=== PATIENT | male | born 1995 | race Caucasian/White ===

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

== ENCOUNTER 2018-11-29 14:47 | Emergency (ER) | payer OTHER ==
[2018-11-29 15:04] VITALS: BP 125/59
--- NOTE | 2018-11-29 15:31 | UC ---
Head Injury HPI - HPI Summary HPI Summary: Was elbowed in the face 2 days ago while playing basketball. Had brief period of confusion and then was able to continue playing. Subsequently has had headaches, nausea, photophobia and light headedness. Still having some difficulty focusing. - History Of Current Complaint Chief Complaint: UCHeadInjury Stated Complaint: LIGHT HEADED, FATIGUE, NAUSEA Time Seen by Provider: 11/29/18 15:15 Hx Obtained From: Patient Onset/Duration: Sudden Onset, Lasting Days - 2, Still Present Severity Currently: Mild Severity Initially: Moderate Pain Intensity: 4 Character: Dull Aggravating Factor(s): Other - light and activity Alleviating Factor(s): Nothing Associated Signs And Symptoms: Positive: Confusion, Nausea. Negative: LOC ( Time In Secs./Mins/Hrs), Neck Pain, Vomiting - Risk Factors SDH Risk Factor: Recent Trauma - Allergies/Home Medications Allergies/Adverse Reactions: Allergies Allergy/AdvReac Type Severity Reaction Status Date / Time dog Allergy Hives Uncoded 11/29/18 15:01 seasonal Allergy Eyes Uncoded 11/29/18 15:01 Itchy/Swollen/Red/Watery Home Medications: Home Medications Folic Acid TAB* [Folvite TAB*] 1 mg PO DAILY 11/29/18 [History Confirmed ] Methotrexate TAB* 17.5 mg PO ALEXANDRE 11/29/18 [History Confirmed 11/29/18] PMH/Surg Hx/FS Hx/Imm Hx - Additional Past Medical History Additional PMH: Rheumatoid arthritis - Surgical History Surgical History: None - Family History Known Family History: Negative: Diabetes - Social History Occupation: Employed Full-time Lives: With Family Alcohol Use: Occasionally Substance Use Type: None Smoking Status (MU): Never Smoked Tobacco - Immunization History Vaccination Up to Date: Yes Review of Systems All Other Systems Reviewed And Are Negative: Yes Constitutional: Positive: Fatigue Skin: Positive: Bruising - under left eye Eyes: Positive: Photophobia Gastrointestinal: Positive: Nausea Neurological: Positive: Headache Is Patient Immunocompromised?: Yes - on methotrexate Physical Exam Triage Information Reviewed: Yes Appearance: Well-Appearing, Well-Nourished, Pain Distress - mild Vital Signs: Initial Vital Signs Temp 97.6 F 11/29/18 14:58 Pulse 80 11/29/18 14:58 Resp 16 11/29/18 14:58 BP 125/59 11/29/18 14:58 Pulse Ox 98 11/29/18 14:58 Vital Signs Reviewed: Yes Eye Exam: Normal, Other - disc's sharp. ENT Exam: Normal Dental Exam: Normal Neck exam: Normal Respiratory Exam: Normal Cardiovascular Exam: Normal Abdominal Exam: Normal Musculoskeletal Exam: Normal Neurological Exam: Other - Negative rhomberg Neurological: Positive: Alert, Muscle Tone Normal, Other: - heel toe walking with slight imbalance. Psychological Exam: Normal Skin Exam: Normal Head Injury Course/Dx - Differential Dx/Diagnosis Differential Diagnosis/HQI/PQRI: Cerebral Contusion, Cervical Sprain, Concussion Without LOC, Contusion Provider Diagnosis: Post concussion syndrome Discharge - Sign-Out/Discharge Documenting (check all that apply): Patient Departure All imaging exams completed and their final reports reviewed: No - Discharge Plan Condition: Stable Disposition: HOME Patient Education Materials: Post Concussion Syndrome (ED) Referrals: Patience Conrad MD [Primary Care Provider] - If Needed (If the concussion symptoms are not resolving.) Additional Instructions: Avoid video games and scary movies. Sleep as much as possible. Avoid any contact sports for at least 7 days after the last of the post concussion symptoms have resolved. - Billing Disposition and Condition Condition: STABLE Disposition: Home
== END 2018-11-29 15:38 | disposition home or self-care (01) ==
LOC: UCCORT 14:47
DX: F07.81 Postconcussional syndrome (principal); W50.0XXA Accidental hit or strike by another person, initial encounter; Y93.67 Activity, basketball; Y92.9 Unspecified place or not applicable
CPT/HCPCS: 99211; G0463

== ENCOUNTER 2019-05-14 09:53 | Emergency (ER) | payer OTHER ==
[2019-05-14 10:12] VITALS: BP 132/67
--- NOTE | 2019-05-14 11:21 | UC ---
UC General HPI - HPI Summary HPI Summary: Pt presents with c/o generalized malaise, chills, light headed X 2-3 days. Pt states that he has not eaten breakfast this morning and felt light headed at work. Pt also c/o redness at injection site of humira that pt takes for RA and is scheduled for every other week. Pt states that he called the rheumatology office and was told to come here. - History of Current Complaint Chief Complaint: UCGeneralIllness Stated Complaint: GOT HUMIRA SHOT(05/12/19)-LOW ENERGY,FEVER,DIZZY Time Seen by Provider: 05/14/19 10:15 Hx Obtained From: Patient Onset/Duration: Sudden Onset, Lasting Days, Still Present Timing: Constant Onset Severity: Mild Current Severity: Mild Pain Intensity: 0 Associated Signs & Symptoms: Positive: Dizziness, Weakness - Allergy/Home Medications Allergies/Adverse Reactions: Allergies Allergy/AdvReac Type Severity Reaction Status Date / Time dog Allergy Hives Uncoded 05/14/19 10:10 seasonal Allergy Eyes Uncoded 05/14/19 10:10 Itchy/Swollen/Red/Watery Home Medications: Home Medications Adalimumab [Humira] mg SC Q14D 05/14/19 [History] PMH/Surg Hx/FS Hx/Imm Hx Previously Healthy: Yes - Surgical History Surgical History: None - Family History Known Family History: Negative: Diabetes - Social History Occupation: Employed Part-time, Student Lives: With Family Alcohol Use: Occasionally Substance Use Type: None Smoking Status (MU): Never Smoked Tobacco Have You Smoked in the Last Year: No - Immunization History Vaccination Up to Date: Yes Review of Systems All Other Systems Reviewed And Are Negative: Yes Constitutional: Positive: Chills, Fatigue Skin: Positive: Negative Eyes: Positive: Negative ENT: Positive: Sore Throat Respiratory: Positive: Cough Cardiovascular: Positive: Negative Gastrointestinal: Positive: Negative Genitourinary: Positive: Negative Motor: Positive: Negative Neurovascular: Positive: Negative Musculoskeletal: Positive: Myalgia Neurological: Positive: Negative Psychological: Positive: Negative Is Patient Immunocompromised?: No Physical Exam Triage Information Reviewed: Yes Appearance: Well-Appearing Vital Signs: Initial Vital Signs Temp 97.5 F 05/14/19 10:08 Pulse 76 05/14/19 10:08 Resp 16 05/14/19 10:08 BP 132/67 05/14/19 10:08 Pulse Ox 99 11/14/19 10:08 Vital Signs Reviewed: Yes Eye Exam: Normal ENT Exam: Normal ENT: Positive: Normal ENT inspection Dental Exam: Normal Neck exam: Normal Respiratory Exam: Normal Cardiovascular Exam: Normal Musculoskeletal Exam: Normal Neurological Exam: Normal Psychological Exam: Normal Skin Exam: Other - mild erythema to right mid anterior thigh, no palpable swelling or noted discharge or induration Course/Dx - Course Course Of Treatment: I phoned the rheumatologst office and was advised to have CBC done. - Differential Dx - Multi-Symptom Differential Diagnoses: Urinary Tract Infection - Diagnoses Provider Diagnosis: Injection site irritation, Viral syndrome Discharge ED - Sign-Out/Discharge Documenting (check all that apply): Patient Departure All imaging exams completed and their final reports reviewed: No Studies - Discharge Plan Condition: Stable Disposition: HOME Patient Education Materials: Adalimumab (By injection), Viral Syndrome (ED) Forms: *Work Release Referrals: Patience Conrad MD [Primary Care Provider] - If Needed Theo Ford [Medical Doctor] - Additional Instructions: Please follow up with your audio visual aide as soon as possible. - Billing Disposition and Condition Condition: STABLE Disposition: Home - Attestation Statements Provider Attestation: This patient was not seen by me I was available for consult Chart reviewed TANMAY
[2019-05-14 14:02] LABS: ABS Basophils 0.1 10^3/ul (0-0.2); ABS Eosinophils 0.5 10^3/ul (0-0.6); ABS Monocytes 0.5 10^3/ul (0-0.8); ABS Neutrophils 5.2 10^3/ul (1.5-7.7); Eosinophil % 5.8 %; Hematocrit 49 % (42-52); Hemoglobin 16.9 g/dL (14.0-18.0); Lymphocyte % 23.7 %; Mean Corpuscular HGB Conc 35 g/dL (31-36); Mean Corpuscular Hemoglobin 31 pg (27-31); Mean Corpuscular Volume 89 fL (80-94); Nucleated Red Blood Cells % 0.1; Platelet Count 291 10^3/uL (150-450); Red Cell Distribution Width 13 % (10-15); White Blood Count 8.2 10^3/uL (3.5-10.8)
== END 2019-05-14 10:38 | disposition home or self-care (01) ==
LOC: UCCORT 09:53
DX: R53.81 Other malaise (principal); R23.8 Other skin changes; R42 Dizziness and giddiness; R68.83 Chills (without fever); R53.83 Other fatigue; J02.9 Acute pharyngitis, unspecified; R05 Cough; M79.10 Myalgia, unspecified site; Z91.09 Other allergy status, other than to drugs and biological substances
CPT/HCPCS: 36415; 85025; 99211; G0463

== ENCOUNTER 2019-09-12 17:14 | Emergency (ER) | payer OTHER ==
--- OUTSIDE RECORDS SUMMARY | 2019-09-12 17:35 | XMS REPORT | Summary of Care ---
:1995 Author Organization [facility] Address [address] [place] [address] Care Team Providers Name Role Phone Patience Conrad MD Primary Care Provider Reason for Referral Consultation (Routine) Status Reason Specialty Diagnoses / Referred By Referred To Procedures Contact Contact Open Specialty Ophthalmology Diagnoses Seropositive rheumatoid arthritis Long-term use of Plaquenil Nadir Ford MD [address] [place], [place] [id number] Email: [email or web address] Reason for Visit Reason Comments Follow-up Encounter Details Date Type Department Care Team Description 08/05/2019 Office Visit Randall Wharton rheumatoid arthritis (Primary Dx); Rheumatology MD Theo Long-term use of Plaquenil; [address] High risk medication use [address] Suite On license of [facility] [id number] [place] [address] [phone] Allergies No Known Allergiesdocumented as of this encounter (statuses as of 08/06/2019) Medications Medication Sig Dispensed Refills Start Date End Date Status Hydroxychloroquine Take 1 tablet 180 tablet 0 05/19/2019 08/17/2019 Active Sulfate 200 MG Oral by mouth Two Tablet (PLAQUENIL) Times Daily Adalimumab 40 MG/0.4ML Inject 0.4 2 each 2 07/31/2019 Active Subcutaneous Pen-injector mLs into the Kit (HUMIRA PEN) skin every 14 (fourteen) days documented as of this encounter (statuses as of 08/06/2019) Active Problems No known active problemsdocumented as of this encounter (statuses as of 2019) Social History Tobacco Use Types Packs/Day Years Used Date Never Smoker Smokeless Tobacco: Never Used Tobacco Cessation: Counseling Given: No Alcohol Use Drinks/Week oz/Week Comments No Alcohol Habits Answer Date Recorded How often do you have a drink containing alcohol? Never 07/22/2018 How many drinks containing alcohol do you have on a typical Not asked day when you are drinking? How often do you have six or more drinks on one occasion? Not asked Sex Assigned at Date Recorded Not on file Job Start Date Occupation Industry Not on file Not on file Not on file Travel History Travel Start Travel End No recent travel history available. documented as of this encounter Last Filed Vital Signs Vital Sign Reading Time Taken Comments Blood Pressure 139/74 08/05/2019 3:51 PM EST Pulse 73 08/05/2019 3:51 PM EST Temperature 36.9 08/05/2019 3:51 PM EST C (98.5 F) Respiratory Rate 18 08/05/2019 3:51 PM EST Oxygen Saturation 99% 08/05/2019 3:51 PM EST Inhaled Oxygen Concentration - - Weight 83.5 kg (184 lb) 08/05/2019 3:51 PM EST Height 177.8 cm (5' 10") 08/05/2019 3:51 PM EST Body Mass Index 26.4 08/05/2019 3:51 PM EST documented in this encounter Progress Notes Theo Ford MD - 08/05/2019 4:00 PM EST Subjective: Patient ID: Linden Veloz is a 23 y.o. male. Dictation on: 08/05/2019 4:20 PM by: THEO LOWE [[id number]] Patient is aware of plaquenil's potential to cause retinal and corneal pigment deposits, myopathy and neuropathy. Patient is also aware of the need to follow up with ophthalmology in this regard. HPI Linden has a past medical history of Arthritis and Low back pain. Linden has no past surgical history on file. His family history includes Arthritis in his mother and paternal grandmother; Cancer in his father; Hypertension in his father; Thyroid disease in his paternal aunt and paternal grandmother. Linden reports that he has never smoked. He has never used smokeless tobacco. He reports that he does not drink alcohol or use drugs. Linden has a current medication list which includes the following prescription(s) : adalimumab and hydroxychloroquine. Linden has No Known Allergies. Review of Systems Constitutional: Negative. HENT: Negative. Eyes: Negative. Respiratory: Negative. Cardiovascular: Negative. Gastrointestinal: Negative. Endocrine: Negative. Genitourinary: Negative. Musculoskeletal: Positive for arthralgias. Negative for joint swelling. Skin: Negative. Allergic/Immunologic: Negative. Neurological: Negative. Hematological: Negative. Psychiatric/Behavioral: Negative. Objective: Physical Exam Vitals signs reviewed. Constitutional: Appearance: He is well-developed. HENT: Head: Normocephalic and atraumatic. Eyes: Conjunctiva/sclera: Conjunctivae normal. Neck: Thyroid: No thyromegaly. Trachea: No tracheal deviation. Cardiovascular: Rate and Rhythm: Normal rate and regular rhythm. Pulmonary: Effort: Pulmonary effort is normal. No respiratory distress. Musculoskeletal: General: Tenderness present. No swelling. Skin: General: Skin is warm and dry. Neurological: Mental Status: He is alert and oriented to person, place, and time. documented in this encounter Plan of Treatment Date Type Specialty Care Team Description 12/08/2019 Office Visit Rheumatology Theo Ford MD [address] [place] [address] [address] [place] [address] [phone] Name Type Priority Associated Diagnoses Order Schedule Referral to Outpatient Routine Seropositive Ordered: Ophthalmology Referral rheumatoid arthritis 08/05/2019 Long-term use of Plaquenil Health Maintenance Due Date Last Done Comments MMR Vaccines (1 of 1 - Standard 1998 series) Varicella Vaccines (1 of 2 - 1998 2-dose childhood series) DTaP,Tdap,and Td Vaccines (1 - 2004 Tdap) HPV Vaccines (1 - Male 2-dose 2008 series) HIV Screening 2010 Influenza Vaccine 03/31/2019 Pneumococcal Vaccine: 65+ Years (1 2062 of 2 - PCV13) HIB Vaccines Aged Out No longer eligible based on patient's age to complete this topic Hepatitis A Vaccines Aged Out No longer eligible based on patient's age to complete this topic Hepatitis B Vaccines Aged Out No longer eligible based on patient's age to complete this topic IPV Vaccines Aged Out No longer eligible based on patient's age to complete this topic Pneumococcal Vaccine: Pediatrics Aged Out No longer eligible based on (0 to 5 Years) and At-Risk patient's age to complete this Patients (6 to 64 Years) topic documented as of this encounter Procedures Procedure Name Priority Date/Time Associated Comments Diagnosis CREATININE WITH GFR Routine 08/05/2019 4:15 High risk Results for this PM EST medication use procedure are in the results section. SEDIMENTATION RATE, Routine 08/05/2019 4:15 High risk Results for this AUTOMATED PM EST medication use procedure are in the results section. CBC AND DIFFERENTIAL Routine 08/05/2019 4:15 High risk Results for this PM EST medication use procedure are in the results section. INFLAMMATORY Routine 08/05/2019 4:15 High risk Results for this C-REACTIVE PROTEIN PM EST medication use procedure are in (CRP) the results section. ALT Routine 08/05/2019 4:15 High risk Results for this PM EST medication use procedure are in the results section. AST Routine 08/05/2019 4:15 High risk Results for this PM EST medication use procedure are in the results section. documented in this encounter Results Sedimentation rate, automated (08/05/2019 4:15 PM EST) Sed Rate - ESR 4 <15 mm/hr [facility] Clin Pathology Specimen EDTA Whole Blood Performing Organization Address City/[facility] Phone Number [facility] [address] [place] [address] [phone] [facility] [address] [place] [address] Pathology Inflammatory C-Reactive Protein (CRP) (08/05/2019 4:15 PM EST) C Reactive Protein <0.5 <8.0 mg/L [facility] Pathology Specimen Plasma Performing Organization Address City/[facility] Phone Number [facility] [address] [place] [address] [facility] [address] [place] [id number] Pathology Creatinine with GFR (08/05/2019 4:15 PM EST) Creatinine 0.85 0.70 - 1.20 [facility] mg/dL Univ Clin Pathology GFR Non >90 >60 [facility] Taiwanese 2009 CDK-EPI mL/min/1.73m2 Univ Clin Pathology GFR >90 >60 [facility] 2009 CKD-EPI mL/min/1.73m2 [facility] Clin Pathology Specimen Plasma Performing Organization Address City/State/Zipcode Phone Number [facility] CLINICAL PATHOLOGY [address] [place] [phone] [facility] [address] [place] [address] Pathology CBC and Differential (08/05/2019 4:15 PM EST) White Blood Cell 7.5 4 - 10 [facility] 10*3/uL [facility] Pathology Red Blood Cell 5.14 4.6 - 6.1 [facility] 10*6/uL [facility] Pathology Hemoglobin 15.9 13.5 - 18 [facility] g/dL [facility] Pathology Hematocrit 46.0 41 - 53 % [facility] Clin Pathology Mean Cell Volume 89.5 80 - 96 fL [facility] Clin Pathology Mean Cell Hemoglobin 30.9 27 - 33 pg [facility] Clin Pathology Mean Cell Hgb Conc 34.5 32.0 - 36.0 [facility] g/dL Univ Clin Pathology Red Cell Dist Width 13.5 11.5 - 14.5 % [facility] Pathology Platelet Count 289 150 - 400 [facility] 10*3/uL Univ Clin Pathology Differential Type Automated Diff [facility] Pathology Neutrophil 69 % [facility] Lymphocyte 22 % [facility] Pathology Monocyte 7 % [facility] Pathology Eosinophil 1 % [facility] Clin Pathology Basophil 1 % [facility] Clin Pathology Abs Neutrophil 5.20 1.8 - 7.0 [facility] 10*3/uL Univ Clin Pathology Abs Lymphocyte 1.62 1.2 - 4.0 [facility] 10*3/uL Univ Clin Pathology Abs Monocyte 0.50 0 - 0.8 [facility] 10*3/uL Univ Clin Pathology Abs Eosinophil 0.09 0 - 0.5 [facility] 10*3/uL Univ Clin Pathology Abs Basophil 0.04 0 - 0.2 [facility] 10*3/uL [facility] Clin Pathology Nucleated Red Blood 0 0 - 0 [facility] Cells /100{WBCs} [facility] Pathology Specimen EDTA Whole Blood Performing Organization Address [facility] Phone Number [facility] PATHOLOG[facility] [address] [place] [address] [facility] [address] [place] [address] Pathology AST (08/05/2019 4:15 PM EST) AST/SGO 17 <40 U/L [facility] Pathology Specimen Plasma Performing Organization Address [facility] Phone Number [facility] PATH[facility] [address] [place] [address] [phone] [facility] [address] [place] [address] Pathology ALT (08/05/2019 4:15 PM EST) ALT/SGP 23 <41 U/L [facility] Pathology Specimen Plasma Performing Organization Address [facility] Phone Number [facility] [address] [place] [address] [facility] [address] [place] [address] Pathology documented in this encounter Visit Diagnoses Diagnosis Seropositive rheumatoid arthritis - Primary Rheumatoid arthritis Long-term use of Plaquenil High risk medication use Encounter for long-term (current) use of other medications documented in this encounter
[2019-09-12 17:47] VITALS: BP 139/73
--- NOTE | 2019-09-12 17:53 | UC ---
Shoulder Pain HPI - HPI Summary HPI Summary: Was lifting boxes overhead and throwing them up onto a pallet. Potter a pop and had immediate onset of pain. - History of Current Complaint Stated Complaint: RIGHT SHOULDER INJURY AT WORK Hx Obtained From: Patient Onset/Duration: Sudden Onset, Lasting Hours - 3, Still Present Timing: Constant Severity Initially: Moderate Severity Currently: Moderate Location Of Pain: Is Discrete @ - right shoulder Character: Dull, Aching Aggravating Factor(s): Movement, Lifting Alleviating Factor(s): Rest Associated Signs And Symptoms: Positive: Negative Related History: Occupational Injury, Dominant Hand Right - Allergies/Home Medications Allergies/Adverse Reactions: Allergies Allergy/AdvReac Type Severity Reaction Status Date / Time dog Allergy Hives Uncoded 09/12/19 17:45 seasonal Allergy Eyes Uncoded 09/12/19 17:45 Itchy/Swollen/Red/Watery Home Medications: Home Medications Adalimumab [Humira] 10 mg SC Q14D 05/14/19 [History Confirmed 09/12/19] Ibuprofen TAB* [Motrin TAB* 600 MG] 600 mg PO Q6H PRN #120 tab 09/12/19 [Rx] PMH/Surg Hx/FS Hx/Imm Hx - Additional Past Medical History Additional PMH: Rheumatoid arthritis - Surgical History Surgical History: None - Family History Known Family History: Positive: Hypertension Negative: Diabetes - Social History Occupation: Employed Full-time Lives: With Family Alcohol Use: Occasionally Substance Use Type: None Smoking Status (MU): Never Smoked Tobacco Have You Smoked in the Last Year: No - Immunization History Vaccination Up to Date: Yes Review of Systems All Other Systems Reviewed And Are Negative: Yes Musculoskeletal: Positive: Arthralgia - right shoulder Is Patient Immunocompromised?: Yes - rheumatoid arthritis meds Physical Exam Triage Information Reviewed: Yes Appearance: Well-Appearing, Well-Nourished, Pain Distress - mild Vital Signs Reviewed: Yes Eyes: Positive: Conjunctiva Clear Neck exam: Normal Respiratory Exam: Normal Cardiovascular Exam: Normal Musculoskeletal: Positive: ROM Intact, Strength Limited @ - right shoulder external/internal rotation with pain. Abduction with pain as well., Other: - negative impingment test. Mild bicipital tendon tenderness Negative AC tenderness Neurological Exam: Normal Psychological Exam: Normal Skin Exam: Normal Diagnostics - Radiology No standard instances Radiology Interpretation Completed By: ED Physician Summary of Radiographic Findings: Normal exam read by ED physician Shoulder Course/Dx - Differential Dx/Diagnosis Differential Diagnosis/HQI/PQRI: AC Separation, Bursitis, Rotator Cuff Injury, Sprain, Strain Provider Diagnosis: Rotator cuff (capsule) sprain Discharge ED - Sign-Out/Discharge Documenting (check all that apply): Patient Departure All imaging exams completed and their final reports reviewed: No - Discharge Plan Condition: Stable Disposition: HOME Prescriptions: Ibuprofen TAB* [Motrin TAB* 600 MG] 600 mg PO Q6H PRN #120 tab PRN Reason: Pain - Mild Patient Education Materials: Rotator Cuff Injury (ED) Forms: *Work Release Referrals: Jay Corrigan MD [Medical Doctor] - Patience Conrad MD [Primary Care Provider] - 2 Days (follow up rotator cuff injury) - Billing Disposition and Condition Condition: STABLE Disposition: Home
[2019-09-12] MEDS ORDERED: Ibuprofen TAB* 600 MG PO ONE (18:11)
--- NOTE | 2019-09-13 08:55 | UC ---
- Progress Note Progress Note: wet read correct Course/Dx - Diagnoses Provider Diagnoses: Rotator cuff (capsule) sprain Discharge ED - Sign-Out/Discharge Documenting (check all that apply): Post-Discharge Follow Up All imaging exams completed and their final reports reviewed: Yes - Discharge Plan Condition: Stable Disposition: HOME Prescriptions: Ibuprofen TAB* [Motrin TAB* 600 MG] 600 mg PO Q6H PRN #120 tab PRN Reason: Pain - Mild Patient Education Materials: Rotator Cuff Injury (ED) Forms: *Work Release Referrals: Patience Conrad MD [Primary Care Provider] - 2 Days (follow up rotator cuff injury) Jay Corrigan MD [Medical Doctor] - - Billing Disposition and Condition Condition: STABLE Disposition: Home
== END 2019-09-12 18:24 | disposition home or self-care (01) ==
LOC: UCCORT 17:14
DX: S43.421A Sprain of right rotator cuff capsule, initial encounter (principal); M06.9 Rheumatoid arthritis, unspecified; Z91.09 Other allergy status, other than to drugs and biological substances; X50.0XXA Overexertion from strenuous movement or load, initial encounter; Y92.9 Unspecified place or not applicable
CPT/HCPCS: 99212; A9270-GY; G0463